=== PATIENT | male | born 1985 | race Caucasian/White ===

== ENCOUNTER → 2016-12-20 | Outpatient (CLI) | payer OTHER ==
[~2016-12-20] MED LIST: CYCLOBENZAPRINE10 M1 PO; NEURONTIN100 M1 PO; ZOFRAN ODT4 MG PO
== END ==
LOC: RAD 15:30
DX: M79.672 Pain in left foot (principal); M54.5 Low back pain; M43.17 Spondylolisthesis, lumbosacral region

== ENCOUNTER 2016-12-26 22:20 | Emergency (ER) | payer OTHER ==
[2016-12-26] MEDS ORDERED: NEURONTIN100 M1 PO (22:36)
[2016-12-26] MEDS ORDERED: ZOFRAN ODT4 MG PO (23:52)
[2016-12-26] MEDS ORDERED: CYCLOBENZAPRINE10 M1 PO (23:52)
[2016-12-27 00:16] VITALS: BP 131/89
== END 2016-12-27 00:16 | disposition home or self-care (01) ==
LOC: ED 22:20
DX: A08.4 Viral intestinal infection, unspecified (principal); M54.9 Dorsalgia, unspecified; W19.XXXA Unspecified fall, initial encounter
CPT/HCPCS: J1885; J2270; J2405; J3360; J7030